=== PATIENT | male | born 1940 | race Native Hawaiian/Other Pacific Islander ===

== ENCOUNTER 2017-11-25 08:19 | Outpatient (CLI) | payer OTHER, MEDICARE ==
[~2017-11-25 08:19] MED LIST: ASPIRIN LOW STR81 MG OR; CELEXA40 MG PO; IBUPROFEN200 MG PO; OMEP20CA PO; SIMV40TA57 PO; VITAMIN B-121000 MCG PO
[2017-11-25 09:18] LABS: POTASSIUM 4.2 mmol/L (3.6-5.2)
== END 2017-11-25 11:00 | disposition home or self-care (01) ==
LOC: LAB 08:19 → LABW 08:19
PROVIDERS: Internal Medicine
DX: C61 Malignant neoplasm of prostate (principal); E78.00 Pure hypercholesterolemia, unspecified; Z79.899 Other long term (current) drug therapy
CPT/HCPCS: 36415; 80048; 80076; 82465; 83721; 84153; 84550

== ENCOUNTER 2017-12-14 09:20 | Outpatient (CLI) | payer OTHER, MEDICARE | END 2017-12-14 22:25 | disposition home or self-care (01) | LOC: RAD 09:20 | DX: M79.642 Pain in left hand (principal); M79.641 Pain in right hand; M79.672 Pain in left foot; M79.671 Pain in right foot ==

== ENCOUNTER 2018-03-07 10:08 | Outpatient (CLI) | payer OTHER, MEDICARE | END 2018-03-07 21:53 | disposition home or self-care (01) | LOC: LABW 10:08 | DX: C61 Malignant neoplasm of prostate (principal) | CPT/HCPCS: 36415; 84153 ==

== ENCOUNTER 2018-08-16 20:09 | Emergency (ER) | payer OTHER, MEDICARE ==
[~2018-08-16] VITALS: Ht 182.9 cm; Wt 99.8 kg
[2018-08-16 20:58] LABS: PLATELET COUNT 143 K/uL (142-355)
[2018-08-16 21:14] LABS: POTASSIUM 3.8 mmol/L (3.6-5.2)
[2018-08-16 21:41] VITALS: BP 133/75; TEMP 98.1
== END 2018-08-16 21:46 | disposition home or self-care (01) ==
LOC: ED 20:09
PROVIDERS: Emergency Medicine
PROC: 0T9B70Z Drainage of Bladder with Drainage Device, Via Natural or Artificial Opening (ICD-10-PCS; principal; 2018-08-16)
DX: R33.8 Other retention of urine (principal); N30.80 Other cystitis without hematuria
CPT/HCPCS: 51702; 80053; 81000; 85027; 87088; 99283

== ENCOUNTER 2018-09-28 12:22 | Outpatient (CLI) | payer OTHER, MEDICARE | END 2018-09-28 21:39 | disposition home or self-care (01) | LOC: LABW 12:22 | DX: C61 Malignant neoplasm of prostate (principal) | CPT/HCPCS: 36415; 84153 ==

== ENCOUNTER 2019-03-14 10:15 | Outpatient (CLI) | payer OTHER, MEDICARE | END 2019-03-14 19:20 | disposition home or self-care (01) | LOC: LABW 10:15 | DX: C61 Malignant neoplasm of prostate (principal) | CPT/HCPCS: 36415; 84153 ==

== ENCOUNTER 2019-03-30 14:40 | Outpatient (CLI) | payer OTHER, MEDICARE ==
[2019-03-30 15:00] LABS: PLATELET COUNT 155 K/uL (142-355)
[2019-03-30 15:21] LABS: POTASSIUM 4.9 mmol/L (3.6-5.2)
== END 2019-03-30 23:46 | disposition home or self-care (01) ==
LOC: LABW 14:40
PROVIDERS: Internal Medicine
DX: R53.82 Chronic fatigue, unspecified (principal); Z86.39 Personal history of other endocrine, nutritional and metabolic disease; Z79.899 Other long term (current) drug therapy; E55.9 Vitamin D deficiency, unspecified
CPT/HCPCS: 80053; 80061; 82306; 84443; 85027

== ENCOUNTER 2019-04-24 10:51 | Emergency (ER) | payer OTHER, MEDICARE ==
[~2019-04-24] VITALS: Ht 182.9 cm; Wt 99.8 kg
[2019-04-24 13:40] VITALS: BP 136/79; TEMP 97.9
== END 2019-04-24 13:40 | disposition home or self-care (01) ==
LOC: ED 10:51
PROC: 0HQFXZZ Repair Right Hand Skin, External Approach (ICD-10-PCS; principal; 2019-04-24)
PROC: 2W3JX1Z Immobilization of Right Finger using Splint (ICD-10-PCS; 2019-04-24)
DX: S62.662A Nondisplaced fracture of distal phalanx of right middle finger, initial encounter for closed fracture (principal); S61.212A Laceration without foreign body of right middle finger without damage to nail, initial encounter; S61.214A Laceration without foreign body of right ring finger without damage to nail, initial encounter; W20.8XXA Other cause of strike by thrown, projected or falling object, initial encounter; Y92.89 Other specified places as the place of occurrence of the external cause
CPT/HCPCS: 90471; 90715; 96373; 99282; 99283; J2001

== ENCOUNTER 2019-05-03 07:50 | Day surgery (SDC) | payer OTHER, MEDICARE ==
[2019-05-03 08:22] LABS: PLATELET COUNT 186 K/uL (142-355)
[2019-05-03 08:29] LABS: POTASSIUM 3.7 mmol/L (3.6-5.2)
== END 2019-05-03 10:36 | disposition home or self-care (01) ==
LOC: OR 07:50
PROVIDERS: Internal Medicine
PROC: 0DB68ZZ Excision of Stomach, Via Natural or Artificial Opening Endoscopic (ICD-10-PCS; principal; 2019-05-03)
PROC: 0DJD8ZZ Inspection of Lower Intestinal Tract, Via Natural or Artificial Opening Endoscopic (ICD-10-PCS; 2019-05-03)
DX: K44.9 Diaphragmatic hernia without obstruction or gangrene (principal); K57.30 Diverticulosis of large intestine without perforation or abscess without bleeding; R10.13 Epigastric pain; Z12.11 Encounter for screening for malignant neoplasm of colon; Z86.010 Personal history of colon polyps
CPT/HCPCS: 43239; G0121; 80053; 85027; J2250; J2405; J2704

== ENCOUNTER 2019-05-15 13:02 | Outpatient (CLI) | payer OTHER, MEDICARE | END 2019-05-15 22:59 | disposition home or self-care (01) | LOC: US 13:02 | DX: R22.42 Localized swelling, mass and lump, left lower limb (principal) ==

== ENCOUNTER 2020-05-05 16:52 | Outpatient (CLI) | payer OTHER, MEDICARE | END 2020-05-05 19:26 | disposition home or self-care (01) | LOC: LABW 16:52 | DX: C61 Malignant neoplasm of prostate (principal) | CPT/HCPCS: 36415; 84153 ==

== ENCOUNTER 2020-09-11 15:00 | Emergency (ER) | payer OTHER, MEDICARE ==
[~2020-09-11] VITALS: Ht 175.3 cm; Wt 99.8 kg
[2020-09-11 15:19] VITALS: BP 144/70; TEMP 97.8
== END 2020-09-11 18:32 | disposition home or self-care (01) ==
LOC: ED 15:00
PROC: 2W3RX1Z Immobilization of Left Lower Leg using Splint (ICD-10-PCS; principal; 2020-09-11)
DX: S82.832A Other fracture of upper and lower end of left fibula, initial encounter for closed fracture (principal); S70.12XA Contusion of left thigh, initial encounter; W10.9XXA Fall (on) (from) unspecified stairs and steps, initial encounter; Y92.89 Other specified places as the place of occurrence of the external cause
CPT/HCPCS: 99283

== ENCOUNTER 2020-11-27 14:21 | Outpatient (CLI) | payer OTHER, MEDICARE | END 2020-11-27 22:14 | disposition home or self-care (01) | LOC: RAD 14:21 | PROVIDERS: ATTEND Physician Assistant | DX: M25.562 Pain in left knee (principal) ==

== ENCOUNTER 2020-12-29 08:48 | Observation (INO) | payer OTHER, MEDICARE ==
[~2020-12-29] VITALS: Ht 182.9 cm; Wt 57.4 kg
[2020-12-29 09:00] VITALS: BP 119/83; TEMP 97.8
[2020-12-29 09:17] LABS: PLATELET COUNT 151 K/uL (142-355)
[2020-12-29 09:24] LABS: POTASSIUM 3.7 mmol/L (3.6-5.2); SODIUM 141 mmol/L (136-145)
[2020-12-29 09:55] LABS: PARTIAL THROMBOPLASTIN TIME 22.8 SECONDS (24.5-33.6)
[2020-12-29 11:30] VITALS: BP 139/79; TEMP 98.7; Ht 182.9 cm; Wt 57.4 kg
[2020-12-29 20:26] VITALS: BP 123/65; TEMP 97.8
[2020-12-29 23:50] VITALS: BP 110/52; TEMP 98.1
--- NOTE | 2020-12-29 23:53 | NUR ---
LATE ENTRY 2100: PATIENT DENIED LOVENOX SHOT. PAAATIETN TEACHING ON MEDICATION GIVEN AND REINFORCED.Ptient denies any pain or discomfort.
--- NOTE | 2020-12-30 02:12 | NUR ---
MR GONGORA AGAIN DENIES NAY PAIN. SANDY STATES, "I THINK MY ACID REFLUX HAS BEEN ACTING UP BUT I JUST WANTED TO MAKE SURE."
[2020-12-30 03:51] VITALS: BP 148/74; TEMP 97.7
--- NOTE | 2020-12-30 04:07 | NUR ---
PATIENT REPORTS NO PAIN AND HAS NO PROBLEMS WITH ADLS
--- NOTE | 2020-12-30 05:22 | NUR ---
PATIENT IS UP AT BEDSIDE DRINKING A DRINK AND WATCHING TV
[2020-12-30 08:00] VITALS: BP 140/63; TEMP 98.4
--- NOTE | 2020-12-30 08:00 | NUR ---
PT STATES THAT HE NO LONGER HAS CHEST PAIN AFTER RECIEVING PANTOPRAZOLE LAST NIGHT. PT STATES THAT HE DOES STILL FEEL UNSTEADY WHEN TRYING TO WALK. INTERVENTIONIST WILL NOTIFY PT OF PT CONCERNS.
--- NOTE | 2020-12-30 09:36 | NUR ---
PHYSICAL THERAPY IS IN PT'S ROOM WITH PT. PHYSICAL THERAPY IS DOING TESTING TO TEST PT FOR DIZZINESS. PT'S BP IS ELEVATED AT 157/76. PT STATES THAT HE NOW HAS A HEADACHE.
--- NOTE | 2020-12-30 10:03 | NUR ---
PHYSICAL THERAPY SPOKE WITH PT AFTER EVALUATION. PHTYSICAL THERAPY STATED THAT IT IS ABNORMAL FOR THE PT TO EXPERIENCE VERTIGO NOT WHILE DOING THE ROLLING EXERCISED BUT AFTER. ALSO PT'S BP DROPPED AFTER PERFORMING THE ROLLING EXERCISES WHICH IS ALSO ABNORMAL. PHYSICAL THERAPY STATED THAT THE PT IS NOT SHOWING THE TYPICAL SIGNS OF VERTIGO. PT STATES THAT THE ROOM IS NOT SPINNING BUT IS BECOMING BLURRY.
[2020-12-30] MEDS ORDERED: MOBIC15 MG PO (10:25)
[2020-12-30] MEDS ORDERED: OMEP40CA PO (10:25)
--- NOTE | 2020-12-30 12:30 | NUR ---
PT RECIEVED DISCHARGE TEACHING AND INSTRUCTIONS. PT AND FAMILY VERBALIZED UNDERSTANDING OF INSTRUCTIONS AND TEACHING. IV WAS REMOVED WITH CATHETER STILL INTACT. PT WALKED DOWN THE DORSEY AND THROUGH THE FRONT DOORS TO PERSONAL VEHICLE. PT'S SPOUSE AND DAUGHTER LEFT WITH PT. NAD WAS NOTED DURING DISCHARGE.
== END 2020-12-30 12:50 | disposition home or self-care (01) ==
LOC: ED 08:48 → MED/SURG 10:07
PROVIDERS: Hospitalist; ADMIT Internal Medicine; ATTEND Internal Medicine
DX: R07.89 Other chest pain (principal); R00.1 Bradycardia, unspecified; E78.49 Other hyperlipidemia; Z85.46 Personal history of malignant neoplasm of prostate; K21.9 Gastro-esophageal reflux disease without esophagitis; R42 Dizziness and giddiness; F32.9 Major depressive disorder, single episode, unspecified; E53.8 Deficiency of other specified B group vitamins
CPT/HCPCS: 36415; 80053; 82533; 82550; 83880; 84443; 84484; 85027; 85610; 85730; 87635; 93005; 96360; 96374; 96375; 99220; 99284; G0378; J1650; J1885; J2405; U0003

== ENCOUNTER 2021-02-09 14:17 | Outpatient (CLI) | payer OTHER, MEDICARE ==
[~2021-02-09 14:17] MED LIST changes: +MOBIC15 MG PO; +OMEP40CA PO
[2021-02-09 14:39] LABS: PLATELET COUNT 165 K/uL (142-355)
[2021-02-09 15:34] LABS: POTASSIUM 4.1 mmol/L (3.6-5.2)
== END 2021-02-09 19:08 | disposition home or self-care (01) ==
LOC: LABW 14:17
PROVIDERS: ATTEND Internal Medicine
DX: R53.83 Other fatigue (principal); R11.0 Nausea; R19.7 Diarrhea, unspecified; R42 Dizziness and giddiness
CPT/HCPCS: 36415; 80053; 82607; 83630; 85027; 87015; 87045; 87324; 87328; 87329; 87449; 87502; 87899

== ENCOUNTER 2021-02-10 13:32 | Outpatient (CLI) | payer OTHER, MEDICARE | END 2021-02-10 22:22 | disposition home or self-care (01) | LOC: US 13:32 | PROVIDERS: ATTEND Internal Medicine | DX: R07.89 Other chest pain (principal); R61 Generalized hyperhidrosis; R42 Dizziness and giddiness ==

== ENCOUNTER 2021-06-02 07:34 | Outpatient (CLI) | payer OTHER, MEDICARE | END 2021-06-02 20:05 | disposition home or self-care (01) | LOC: NM 07:34 | PROVIDERS: ATTEND Internal Medicine | DX: Z01.810 Encounter for preprocedural cardiovascular examination (principal); R06.02 Shortness of breath; R42 Dizziness and giddiness | CPT/HCPCS: A9500 ==

== ENCOUNTER 2021-09-01 12:54 | Outpatient (CLI) | payer OTHER, MEDICARE | END 2021-09-01 18:53 | disposition home or self-care (01) | LOC: RESP 12:54 | PROVIDERS: ATTEND Internal Medicine | DX: R00.2 Palpitations (principal); R07.89 Other chest pain; R06.02 Shortness of breath; I25.10 Atherosclerotic heart disease of native coronary artery without angina pectoris; Z13.6 Encounter for screening for cardiovascular disorders ==

== ENCOUNTER 2021-12-01 14:50 | Outpatient (CLI) | payer OTHER, MEDICARE ==
[2021-12-01 15:16] LABS: POTASSIUM 4.3 mmol/L (3.6-5.2)
== END 2021-12-01 19:14 | disposition home or self-care (01) ==
LOC: LABW 14:50
PROVIDERS: ATTEND Internal Medicine
DX: R06.02 Shortness of breath (principal); R53.1 Weakness; I25.10 Atherosclerotic heart disease of native coronary artery without angina pectoris
CPT/HCPCS: 36415; 80048; 83880

== ENCOUNTER 2022-01-28 13:15 | Outpatient (CLI) | payer OTHER, MEDICARE ==
[2022-01-28 13:27] LABS: PLATELET COUNT 141 K/uL (142-355)
[2022-01-28 13:37] LABS: POTASSIUM 4.2 mmol/L (3.6-5.2)
== END 2022-01-28 21:20 | disposition home or self-care (01) ==
LOC: LAB 13:15
PROVIDERS: ATTEND Internal Medicine
DX: I95.9 Hypotension, unspecified (principal); R53.1 Weakness
CPT/HCPCS: 80053; 82607; 82746; 85027

== ENCOUNTER 2022-02-17 08:49 | Outpatient (CLI) | payer OTHER, MEDICARE | END 2022-02-17 18:48 | disposition home or self-care (01) | LOC: MAMMO 08:49 | PROVIDERS: ATTEND Internal Medicine | DX: N63.21 Unspecified lump in the left breast, upper outer quadrant (principal); N64.4 Mastodynia | CPT/HCPCS: G0279 ==

== ENCOUNTER 2022-04-27 15:49 | Outpatient (CLI) | payer OTHER, MEDICARE | END 2022-04-27 21:39 | disposition home or self-care (01) | LOC: RAD 15:49 | PROVIDERS: ATTEND Orthopaedic Surgery | DX: M25.561 Pain in right knee (principal); M25.562 Pain in left knee ==

== ENCOUNTER 2022-09-14 13:36 | Outpatient (CLI) | payer OTHER, MEDICARE | END 2022-09-14 19:02 | disposition home or self-care (01) | LOC: RAD 13:36 | PROVIDERS: ATTEND Orthopaedic Surgery | DX: M25.562 Pain in left knee (principal) ==

== ENCOUNTER 2022-10-26 11:31 | Outpatient (CLI) | payer OTHER, MEDICARE | END 2022-10-26 19:38 | disposition home or self-care (01) | LOC: RAD 11:31 | PROVIDERS: ATTEND Orthopaedic Surgery | DX: M25.511 Pain in right shoulder (principal) ==

== ENCOUNTER 2022-11-08 10:40 | Outpatient (CLI) | payer OTHER, MEDICARE ==
[2022-11-08 11:30] LABS: PLATELET COUNT 179 K/uL (142-355)
[2022-11-08 11:51] LABS: POTASSIUM 4.4 mmol/L (3.6-5.2)
== END 2022-11-08 18:58 | disposition home or self-care (01) ==
LOC: LABW 10:40
PROVIDERS: ATTEND Internal Medicine
DX: R53.83 Other fatigue (principal); I25.10 Atherosclerotic heart disease of native coronary artery without angina pectoris; M54.89 Other dorsalgia
CPT/HCPCS: 36415; 80053; 81002; 82607; 84403; 84443; 85027

== ENCOUNTER 2022-11-15 09:36 | Outpatient (CLI) | payer OTHER, MEDICARE | END 2022-11-15 20:44 | disposition home or self-care (01) | LOC: RAD 09:36 | PROVIDERS: ATTEND Internal Medicine | DX: G89.11 Acute pain due to trauma (principal); M54.59 Other low back pain ==

== ENCOUNTER 2022-11-19 09:27 | Outpatient (CLI) | payer OTHER, MEDICARE | END 2022-11-19 19:29 | disposition home or self-care (01) | LOC: CT 09:27 | PROVIDERS: ATTEND Internal Medicine | DX: M54.59 Other low back pain (principal); R10.9 Unspecified abdominal pain; Z03.89 Encounter for observation for other suspected diseases and conditions ruled out | CPT/HCPCS: Q9963 ==

== ENCOUNTER 2022-12-10 08:59 | Outpatient (CLI) | payer OTHER, MEDICARE | END 2022-12-10 20:14 | disposition home or self-care (01) | LOC: LABW 08:59 | PROVIDERS: ATTEND Urology | DX: C61 Malignant neoplasm of prostate (principal) | CPT/HCPCS: 36415; 84153 ==

== ENCOUNTER 2022-12-15 08:09 | Outpatient (CLI) | payer OTHER, MEDICARE ==
[~2022-12-15] VITALS: Ht 182.9 cm; Wt 100.7 kg
== END 2022-12-15 17:00 | disposition home or self-care (01) ==
LOC: NM 08:09
PROVIDERS: ATTEND Internal Medicine Cardiovascular Disease
DX: I20.0 Unstable angina (principal)
CPT/HCPCS: A9500; J2785

== ENCOUNTER 2023-01-12 15:32 | Outpatient (CLI) | payer OTHER, MEDICARE ==
[2023-01-12 15:53] LABS: POTASSIUM 4.2 mmol/L (3.6-5.2)
== END 2023-01-12 19:15 | disposition home or self-care (01) ==
LOC: LABW 15:32
PROVIDERS: ATTEND Internal Medicine Cardiovascular Disease
DX: Z79.899 Other long term (current) drug therapy (principal)
CPT/HCPCS: 36415; 80048; 83735